=== PATIENT | female | born 1945 | race Caucasian/White ===

== ENCOUNTER → 2018-01-15 | Outpatient (CLI) | payer MEDICARE, OTHER ==
[~2018-01-15] MED LIST: ASPIR 8181 MG PO; CENTRUM SILVER1 EAC4 PO; CREON DR 24,001 EACH PO; FENTANYL PA50 MCG/HR TRANSDERM; HYDROCODONE-APA1 TA1 PO; HYDROXYZINE HCL25 M2 PO; LASIX 40 MG TAB40 M2 PO; LEVOTHYROXIN0.112 M1 PO; LEXAPRO 10 MG T10 M1 PO; LIBRAX PO; LIDODERM 5%1 PATC1 TRANSDERM; LINZESS145 MCG PO; NORVASC10 MG PO; ONDANSETRON HCL4 M2 PO; PROTONIX40 M1 PO; RESTORIL15 MG PO; XANAX 0.25 MG0.25 MG PO
[2018-01-15 16:58] LABS: HEMATOCRIT 39.5 % (37.0-47.0); MCH 28.7 pg (26.0-34.0); MCV 87.2 fL (80.0-100.0); MPV 8.2 fl. (7.2-11.1); RBC 4.52 mil/uL (4.20-5.00); RDW-CV 12.6 % (10.5-14.5); WBC 8.2 thou/uL (4.0-11.0)
[2018-01-15 17:14] LABS: ALBUMIN 3.3 g/dL (3.4-5.0); CREATININE 1.8 mg/dL (0.6-1.3); POTASSIUM 3.9 mmol/L (3.5-5.1); TOTAL BILIRUBIN 0.3 mg/dL (<0.1-1.0); TOTAL PROTEIN 8.1 g/dL (6.4-8.2)
== END ==
LOC: M.LAB 16:39
PROVIDERS: Internal Medicine Gastroenterology
DX: R10.9 Unspecified abdominal pain (principal); R63.4 Abnormal weight loss; R63.0 Anorexia

== ENCOUNTER → 2018-01-22 | Outpatient (CLI) | payer MEDICARE, OTHER | LOC: M.NUC 07:01 | DX: K29.70 Gastritis, unspecified, without bleeding (principal); K31.89 Other diseases of stomach and duodenum ==

== ENCOUNTER → 2018-03-26 | Outpatient (CLI) | payer MEDICARE, OTHER ==
[2018-03-26 17:22] LABS: ALBUMIN 3.3 g/dL (3.4-5.0); CALCIUM 8.9 mg/dL (8.5-10.1); CREATININE 1.3 mg/dL (0.6-1.3); POTASSIUM 4.3 mmol/L (3.5-5.1)
[2018-03-27 18:12] LABS: eGFR IF AFRICAN AMERICAN 60 (>59)
[2018-03-27 22:05] LABS: PARATHYROID HORMONE 45 pg/mL (15-65)
== END ==
LOC: M.RAD 16:00
PROVIDERS: Internal Medicine Gastroenterology
DX: M81.0 Age-related osteoporosis without current pathological fracture (principal); N18.3 Chronic kidney disease, stage 3 (moderate); Z78.0 Asymptomatic menopausal state; Z79.899 Other long term (current) drug therapy

== ENCOUNTER → 2018-06-07 | Outpatient (CLI) | payer MEDICARE, OTHER ==
[2018-06-07 16:44] LABS: ALBUMIN 3.4 g/dL (3.4-5.0); CALCIUM 8.9 mg/dL (8.5-10.1); CREATININE 1.5 mg/dL (0.6-1.3); PHOSPHORUS* 3.4 mg/dL (2.5-4.9); POTASSIUM 3.6 mmol/L (3.5-5.1)
[2018-06-08 02:07] LABS: eGFR IF AFRICAN AMERICAN 45 (>59)
[2018-06-08 05:11] LABS: PARATHYROID HORMONE 42 pg/mL (15-65)
== END ==
LOC: M.LAB 15:59
PROVIDERS: Internal Medicine Nephrology
DX: N18.3 Chronic kidney disease, stage 3 (moderate) (principal); J44.9 Chronic obstructive pulmonary disease, unspecified

== ENCOUNTER → 2019-01-17 | Outpatient (CLI) | payer MEDICARE, OTHER ==
[2019-01-17 16:02] LABS: ALBUMIN 3.8 g/dL (3.4-5.0); CALCIUM 9.1 mg/dL (8.5-10.1); CREATININE 1.4 mg/dL (0.6-1.3); POTASSIUM 3.6 mmol/L (3.5-5.1); TOTAL BILIRUBIN 0.4 mg/dL (<0.1-1.0); TOTAL PROTEIN 8.3 g/dL (6.4-8.2)
[2019-01-17 20:26] LABS: HEMATOCRIT 38.6 % (37.0-47.0); HEMOGLOBIN 12.7 gm/dL (12.0-15.0); MCH 28.7 pg (26.0-34.0); MCHC 32.8 g/dL (28.0-37.0); MCV 87.4 fL (80.0-100.0); MPV 9.3 fl. (7.2-11.1); RBC 4.41 mil/uL (4.20-5.00); RDW-CV 13.2 % (10.5-14.5); WBC 11.1 thou/uL (4.0-11.0)
== END ==
LOC: M.RAD 15:12
PROVIDERS: Registered Nurse
DX: R06.02 Shortness of breath (principal); I10 Essential (primary) hypertension; Z88.8 Allergy status to other drugs, medicaments and biological substances

== ENCOUNTER → 2019-01-30 | Outpatient (CLI) | payer MEDICARE, OTHER ==
--- NOTE | 2019-01-30 12:39 | 2DMMODE ---
[place] [address] 2 D/M-MODE ECHOCARDIOGRAM Name: FILIPE DOWNS Room: [facility]#: [id number] Admission: 01/30/19 Attend Phys: Vidal Montero, Discharge: Date of : 45 Date of Service: 01/30/19 1239 Report #: [id number] THIS REPORT FOR: //name// APPROVED REPORT Study performed: 01/30/2019 11:33:59 EXAM: Comprehensive 2D, Doppler, and color-flow Echocardiogram Patient Location: Out-Patient BSA: 1.69 HR: 61 bpm BP: 137/80 mmHg Other Information Study Quality: Good Indications Congestive Heart Failure 2D Dimensions IVSd: 12.83 (7-11mm) LVOT Diam: 20.84 (18-24mm) LVDd: 43.98 mm PWd: 10.79 (7-11mm) Ascending Ao: 30.31 (22-36mm) LVDs: 34.21 (25-40mm) Aortic Root: 32.90 mm Volumes Left Atrial Volume (Systole) LA ESV Index: 23.30 mL/m2 Aortic Valve AoV Peak Mark.: 1.12 m/s AO Peak Gr.: 5.06 mmHg LVOT Max P.96 mmHg AO Mean Gr.: 2.55 mmHg LVOT Mean P.97 mmHg LVOT Max V: 0.70 m/s AO V2 VTI: 26.29 cm LVOT Mean V: 0.45 m/s CONCEPCIÓN (VTI): 2.27 cm2 LVOT V1 VTI: 17.46 cm Mitral Valve E/A Ratio: 0.58 MV Decel. Time: 290.07 ms MV E Max Mark.: 0.44 m/s MV PHT: 84.12 ms MVA (PHT): 2.62 [place]2 [place] [address] 2 D/M-MODE ECHOCARDIOGRAM Name: FILIPE DOWNS [id number] Admission: 01/30/19 Attend Phys: Vidal Montero, Discharge: Date of : 45 Date of Service: 01/30/19 1239 Report #: [id number] TDI E/Lateral E': 7.33 E/Medial E': 8.80 Medial E' Mark.: 0.05 m/s Lateral E' Mark.: 0.06 m/s Pulmonary Valve PV Peak Mark.: 0.71 m/s PV Peak Gr.: 1.99 mmHg Tricuspid Valve RAP Estimate: 5.00 mmHg TR Peak Gr.: 16.86 mmHg RVSP: 21.86 mmHg PA Pressure: 21.86 mmHg Left Ventricle The left ventricle is normal size. There is normal LV segmental wall motion. There is normal left ventricular wall thickness. Left ventricular systolic function is normal. The left ventricular ejection fraction is within the normal range. LVEF is 55%. Grade I - abnormal relaxation pattern. Right Ventricle The right ventricle is normal size. The right ventricular systolic function is normal. Atria The left atrium size is normal. The right atrium size is normal. Aortic Valve Moderate aortic valve sclerosis. No aortic regurgitation is present. There is no aortic valvular stenosis. Mitral Valve The mitral valve is normal in structure. There is no mitral valve regurgitation noted. No evidence of mitral valve stenosis. Tricuspid Valve The tricuspid valve is normal in structure. Mild tricuspid regurgitation. Pulmonic Valve The pulmonary valve is normal in structure. Mild pulmonic regurgitation[place] [address] 2 D/M-MODE ECHOCARDIOGRAM Name: YARELIWESTONFILIPELIYAH TATE Room: [facility]#: [id number] Admission: 01/30/19 Attend Phys: Vidal Montero, Discharge: Date of : 45 Date of Service: 01/30/19 1239 Report #: [id number] The aortic root is normal in size. IVC is normal in size and collapses >50% with inspiration. Pericardium There is no pericardial effusion. <Conclusion> The left ventricle is normal size. There is normal left ventricular wall thickness. Left ventricular systolic function is normal. The left ventricular ejection fraction is within the normal range. LVEF is 55%. Grade I - abnormal relaxation pattern. The right ventricle is normal size. The left atrium size is normal. Moderate aortic valve sclerosis. No aortic regurgitation is present. There is no aortic valvular stenosis. The mitral valve is normal in structure. The tricuspid valve is normal in structure. Mild tricuspid regurgitation. IVC is normal in size and collapses >50% with inspiration. There is no pericardial effusion. There is normal LV segmental wall motion. <ELECTRONICALLY SIGNED> By: Lane Ricketts MD, FACC 01/30/[address] Rick[address] MD, FACC /INF
--- NOTE | 2019-01-30 16:28 | CARDNUC ---
[place] [address] CARDIAC NUCLEAR IMAGING REPORT Name: YARELIFILIPELIYAH TATE Room: [facility]#: [id number] Admission: 01/30/19 Attend Phys: Vidal Montero, Discharge: Date of : 45 Date of Service: 01/30/19 1628 Report #: [id number] THIS REPORT FOR: //name// APPROVED REPORT Imaging Protocol: Rest Tc-99m/Stress Tc-99m 1 day Study performed: 01/30/2019 09:30:00 Indication: Dyspnea Patient Location: Out-Patient Stress Tech: Kristyn Braun Stress Nurse: Maritza Warren RN NM Tech:ELAINE Suarez Ht: 5 ft 2 in Wt: 148 lbs BSA: 1.68 m2 BMI: 27.06 Medical History Medical History: cad, takosubo, hyperlipidemia, hypertension, diabetes Medications: amlodipine, asa-81, furosemide Allergies: nsaids, statins Cardiac Risk Factors: age, hyperlipidemia, hypertension, diabetes, family hx Previous Cardiac Procedures: none Exercise History: Indeterminate Resting Data Rest SPECT myocardial perfusion imaging was performed in supine position 30 minutes following the intravenous injection of 11.5 mCi of Tc-99m Sestamibi. Time of rest injection: 954 Date: 01/30/2019 The images were gated to evaluate regional wall motion and calculate left ventricular ejection fraction. Administration Route: IV Pharmacologic Stress Pharmacologic stress test was performed by injecting Regadenoson 0.4 mg IV push over 10-15 seconds immediately followed by the intravenous injection of 31.9 mCi of Tc-99m Sestamibi. Time of stress injection: 1130 Date: 01/30/2019 Administration Route: IV Gated Stress SPECT was performed 40 minutes after stress injection. The images were gated to evaluate regional [place] [address] CARDIAC NUCLEAR IMAGING REPORT Name: FILIPE DOWNS Room: [facility] TRISTAN Conte#: [id number] Admission: 01/30/19 Attend Phys: Vidal Montero, Discharge: Date of : 45 Date of Service: 01/30/19 1628 Report #: [id number] left ventricular ejection fraction. Prone imaging was performed. Stress Test Details Stress Test: Pharmacologic stress testing performed using 0.4 mg of regadenoson per 5 mL given IV over 10 seconds. Reason for pharmacologic stress test: physical limitation. 60 mg caffeine given for dizziness. HR Max Heart Rate (APMHR): 147 bpm Resting HR: 55 bpm Target HR (85% APMHR): 124 bpm Max HR Achieved: 80 bpm % of APMHR: 54 Recovery HR: 62 bpm BP Resting BP: 137/80 mmHg Max BP: 155/70 mmHg Recovery BP: 136/69 mmHg ECG Resting ECG: Sinus Rhythm, nonspecific ST-T abnormalities Stress ECG: Sinus Rhythm, LBBB ST Change: None Arrhythmia: None Recovery ECG: Sinus Rhythm, LBBB Recovery ST Change: None Recovery Arrhythmia: None Clinical Reason for Termination: Completed protocol Stress Symptoms: Dyspnea Exercise duration: 0 min sec Exercise capacity: 1 METs The patient had some atypical symptoms with Lexiscan infusion that resolved with caffeine. Nurse Comments caffeine used to reverse pt d/t changes in ekg. qrs widened with pascual and qrs returned to normal after injection on caffeine Stress ECG Conclusion The baseline 12-lead EKG show sinus rhythm with nonspecific ST segment depression and T-wave inversion. With Lexiscan infusion the patient developed left bundle-branch block that persisted throughout the remainder of the stress phase. There were no stress[place] [address] CARDIAC NUCLEAR IMAGING REPORT Name: FILIPE DOWNS Room: [facility]#: [id number] Admission: 01/30/19 Attend Phys: Vidal Montero, Discharge: Date of : 45 Date of Service: 01/30/19 1628 Report #: [id number] arrhythmias. Study Quality Study: Good Artifact: No artifact Study Data At rest, the left ventricular ejection fraction was 62%.. Post stress, the left ventricular ejection was 50%.. TID = 1.20. Perfusion There is a moderate size mild intensity reversible defect in the mid to distal anteroapical anterolateral wall. There is a focal partially reversible apical defect of mild intensity. No other significant abnormalities are noted. Wall Motion There is mild global hypokinesis. There is left ventricular dyssynergy consistent with underlying bundle branch block. Additionally the apex appears somewhat hypokinetic. There is mild global LV systolic dysfunction. Nuclear Conclusion ECG Findings: non-diagnostic Clinical Findings: equivocal Nuclear Findings: positive for ischemia Exercise Capacity: not assessed Left Ventricular Function: abnormal Risk Study: high Myocardial perfusion images suggest ischemia involving the mid to distal anterior wall as well as possibly the apex. There is mild LV systolic dysfunction with wall motion abnormalities as noted above. This is a high risk study. <Conclusion> The baseline 12-lead EKG show sinus rhythm with nonspecific ST segment depression and T-wave inversion. With Lexiscan infusion the patient developed left bundle-branch block that persisted throughout the remainder of the stress phase. There were no stress-induced arrhythmias. <ELECTRONICALLY SIGNED> By: Vidal Montero MD, FACC 01/30/19 1628 1628 1628 Vidal Montero MD, FACC /INF
== END ==
LOC: M.NUC
DX: I08.8 Other rheumatic multiple valve diseases (principal); I25.10 Atherosclerotic heart disease of native coronary artery without angina pectoris; I11.0 Hypertensive heart disease with heart failure; I50.9 Heart failure, unspecified; E11.9 Type 2 diabetes mellitus without complications; E78.2 Mixed hyperlipidemia; M81.0 Age-related osteoporosis without current pathological fracture; M10.9 Gout, unspecified; E03.9 Hypothyroidism, unspecified; Z79.899 Other long term (current) drug therapy; Z88.8 Allergy status to other drugs, medicaments and biological substances; Z82.49 Family history of ischemic heart disease and other diseases of the circulatory system

== ENCOUNTER 2019-02-12 13:49 | Observation (INO) | payer MEDICARE, OTHER ==
[2019-02-12] VITALS (8 sets, daily range): BP systolic 134–161; BP diastolic 61–76
[~2019-02-12] VITALS: Ht 157.5 cm; Wt 71.2 kg
[~2019-02-12 13:49] MED LIST changes: -NORVASC10 MG PO; +NORVASC5 MG PO; +PEPCID40 MG PO; -PROTONIX40 M1 PO
[2019-02-12 14:36] LABS: MCH 28.9 pg (26.0-34.0); MCHC 33.3 g/dL (28.0-37.0); MCV 86.9 fL (80.0-100.0); MPV 8.7 fl. (7.2-11.1); RBC 4.49 mil/uL (4.20-5.00); RDW-CV 12.8 % (10.5-14.5); WBC 9.6 thou/uL (4.0-11.0)
[2019-02-12 14:43] LABS: ANION GAP 9 mmol/L (7-16); BUN 23 mg/dL (7-18); CALCIUM 9.2 mg/dL (8.5-10.1); CHLORIDE 104 mmol/L (98-107); CO2 27 mmol/L (21-32); CREATININE 1.5 mg/dL (0.6-1.3); GLUCOSE 107 mg/dL (70-99); POTASSIUM 3.7 mmol/L (3.5-5.1); SODIUM 140 mmol/L (136-145)
[2019-02-12] MEDS ORDERED: JANUVIA100 MG PO (14:43)
[2019-02-12 14:44] LABS: APTT 26.4 Seconds (25.0-31.3); INR 0.9; PROTIME 9.7 Seconds (9.20-11.50)
[2019-02-12 14:49] LABS: ALBUMIN 3.4 g/dL (3.4-5.0); ALKALINE PHOSPHATASE 142 U/L (46-116); CHOLESTEROL 237 mg/dL (<200); HDL CHOLESTEROL 30 mg/dL (>40); SGOT 30 U/L (15-37); SGPT 30 U/L (30-65); TC:HDL 7.9 Ratio (Not establshd); TOTAL BILIRUBIN 0.2 mg/dL (<0.1-1.0); TOTAL PROTEIN 7.5 g/dL (6.4-8.2); TRIGLYCERIDE 503 mg/dL (<150); VLDL 101 mg/dL (<40)
[2019-02-12 14:53] LABS: LDL CHOLESTEROL ND mg/dL (<100); SERUM ASSESSMENT Moderate Lipemia
--- NOTE | 2019-02-12 16:13 | EKG ---
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
[2019-02-12] MEDS ORDERED: LIBRAX CAPSULE1 EACH PO (17:22)
[2019-02-12] MEDS ORDERED: OXYCODONE HCL10 MG PO (17:25)
--- NOTE | 2019-02-12 17:32 | NUR ---
RECEIEVED REPORT FROM SOPHIA RN IN [employer] [facility] CATH AT 1600- DX: SOA WITH HEART CATH PERFORMED, ACCESS PER RIGHT GROIN- PT REPORTED TO HAVE RECEVIED 2 STENTS TO RCA- PT ARRIVED TO UNIT VIA BED AT 1630- ADVERTISING CLERK PLACED ORDERED, TRACING SR WITH BBB- PT A&O X4- CONTINENT OF BOWEL, LOU IN PLACE D/D - BED REST IN PLACE WITH VS ORDERED PERPROTOCOL WITH FREQUENT GROIN CHECKS- RIGHT GROIN WITH C/D/I DRESSING, NO HEMATOMA NOTED-IMMOBILIZATION OF RLE INSTRUCTED- LCTA, LABORED BREATHING NOTED, O2 SAT STABLE AT 98%- IV NOTED INTACT TO LEFT WRIST, SL-ABD SOFT/ROUND/NON-TENDER, BS X4 QUADS- LAST BM REPORTED 02/11/19- AT SIDE AT TIME OF ADMISSION- CALL LIGHT AND PERSONAL BELONGINGS WITH IN REACH- HOURLY ROUNDS IN PLACE R/T SAFETY/NEEDS- ALL NEEDS MET AT THIS TIME-WCTM
[2019-02-13] VITALS (8 sets, daily range): BP systolic 98–115; BP diastolic 40–59
--- NOTE | 2019-02-13 04:57 | NUR ---
ASSUMED PT CARE AT 1915. PT AAOX4, ANXIOUS, C/O SOA. VSS.PT HAD 2 EPISODES OF VTACH. NONSUSTAINED, ASYMPTOMATIC. RIGHT GROIN SITE CLEAN, DRY, INTACT, NO HEMATOMA. CARDIOLOGY PAGED FOR PT COMPLAINTS/HOME MEDS. RECEIVED CALL BACK FROM DR. HERNANDEZ, NEW ORDERS RECEIVED. HOURLY ROUNDING COMPLETED. CALL LIGHT WITHIN REACH. DENIES CHEST PAIN THIS SHIFT.
[2019-02-13 05:40] LABS: HEMATOCRIT 38.7 % (37.0-47.0); HEMOGLOBIN 13.2 gm/dL (12.0-15.0); MCH 29.6 pg (26.0-34.0); MCHC 34.1 g/dL (28.0-37.0); MCV 86.7 fL (80.0-100.0); MPV 8.9 fl. (7.2-11.1); RBC 4.46 mil/uL (4.20-5.00); RDW-CV 12.9 % (10.5-14.5)
[2019-02-13 05:54] LABS: ALBUMIN 3.3 g/dL (3.4-5.0); CREATININE 1.4 mg/dL (0.6-1.3); POTASSIUM 3.5 mmol/L (3.5-5.1); TOTAL BILIRUBIN 0.5 mg/dL (<0.1-1.0); TOTAL PROTEIN 7.2 g/dL (6.4-8.2)
--- NOTE | 2019-02-13 10:21 | EKG ---
[place] [address] ELECTROCARDIOGRAM REPORT Name: APRIL DOWNSBETH LEA Room: [address] M.R.#: [id number] Admission: 02/12/19 Attend Phys: Vidal Montero MD Discharge: Date of : 45 Report #: [id number] THIS REPORT FOR: //name// [facility] Test Date: 2019-02-12 Test Time: 16:36:21 Pat Name: FILIPE DOWNS Department: Room: [facility] Gender: F Media Librarian: : 1945 Requested By: Vidal Montero Order Number: [id number] Alan MD: Dung Jorge Measurements Intervals [place] Rate: 75 P: 63 MA: 201 QRS: 47 QRSD: 144 T: 217 QT: 500 QTc: 559 Interpretive Statements Sinus rhythm Left bundle branch block Compared to ECG 02/12/2019 14:31:17 No significant changes Electronically Signed On 02-13-2019 10:21:44 CDT by Dung Jorge [email or web address] <ELECTRONICALLY SIGNED> By: Dung Jorge MD, [facility] 02/13/19 1021 1636 1636 Dung Jorge MD, [facility] /EPI
--- NOTE | 2019-02-13 10:28 | EKG ---
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1945 Requested By: Vidal Montero Order Number: [id number] Reading MD: Dung Jorge Measurements Intervals [place] Rate: 52 P: 48 [place]: 203 QRS: 37 QRSD: 104 T: 35 QT: 681 QTc: 634 Interpretive Statements Sinus rhythm Abnormal T, consider ischemia, anterior leads Prolonged QT interval Compared to ECG 02/12/2019 14:31:17 T-wave abnormality now present Prolonged QT interval now present Left bundle-branch block no longer present Electronically Signed On 02-13-2019 10:28:35 CDT by Dung Jorge [email or web address] <ELECTRONICALLY SIGNED> By: Dung Jorge MD, [facility] 02/13/19 [phone] Dung Jorge MD, [facility] /EPI
--- NOTE | 2019-02-13 11:33 | CARD ---
[address] [address] CARDIAC CATH REPORT Name: FILIPE DOWNS LEA Room: [address] Nadine Conte#: [id number] Admission: 02/12/19 Attend Phys: Vidal Montero MD Discharge: Date of : 45 Report #: [id number] THIS REPORT FOR: //name// APPROVED REPORT Study performed: 02/12/2019 14:28:00 Patient Details The patient is a 73 year-old female Event Personnel Vidal Montero Medical Communication Specialist, Shaye Andujar RN [employer] Paralegal, Milton You LUMBER STRAIGHTENED Monitor, Alban Merchant LUMBER STRAIGHTENED Scrub Procedures Performed Left Heart Cath w/or w/o Coronaries [id number] [facility] Place w/wo Plasty Single RCA [id number] Admission/Lab Medications/Medications given during procedure Lidocaine Subcut 15 ml, Fentanyl IV 25 mcg, Midazolam (Versed) IV 2 mg, Angiomax IV 10.5 ml, Angiomax Drip IV 23.8 ml per hr, Hydralazine (Apresoline) IV 10 mg, Nitroglycerin SL 1 mg, Lasix (Furosemide) IV 40 ml per hr, Effient PO 60 mg, Aspirin PO 98 mg Procedure Narrative A 6fr Ultimum Sheath sheath was inserted into the RFA. Coronary angiography was performed using coronary diagnostic catheters. The right coronary system was accessed and visualized with a JR4 catheter. The left coronary system was accessed and visualized with a JL4 catheter. The left ventricle was accessed and visualized with a Straight PIG catheter. The patient tolerated the procedure well and there were no complications associated with the procedure. Intraoperative Conscious Sedation Fentanyl 50 mcg Dose: 1560 mGy Contrast Type and Amount: Visipaque 170 ml Coronary Angiography The patient's coronary anatomy is right dominant. Diagnostic Cath Left Main Minimally plaqued and calcified. The left [place] [address] CARDIAC CATH REPORT Name: FILIPE DOWNS Room: [address] M.R.#: [id number] Admission: 02/12/19 Attend Phys: Vidal Montero MD Discharge: Date of : 45 Report #: [id number] into an LAD, ramus intermedius and circumflex marginal branch. LAD Calcified proximally. Mildly plaqued 10-20% proximal mid and distal portion. No hemodynamically significant occlusive stenoses noted. Diagonal 1 Minimally plaqued, small in caliber. Diagonal 2 Minimally plaqued, small in caliber. Circumflex Calcified proximally. Minimal nonocclusive stenoses in the proximal and midportion. Distally there is a tubular 60% narrowing. OM1 Small in caliber and minimally plaqued. OM2 Small in caliber and minimally plaqued. OM3 Moderate in caliber. Mildly plaqued. Right Coronary 80% long tubular narrowing in the proximal to mid right coronary artery. Focal 70 and 60% narrowing in the mid to distal right coronary artery. R PDA Mildly plaqued. RPLV Small in caliber and minimally plaqued. Ramus Large vessel with obtuse marginal distribution. Mild to moderate plaquing without hemodynamically significant stenoses. Left Ventriculography Left Ventriculography was not performed. Hemodynamics The aortic pressure is 171/67 mmHg with a mean of 102 mmHg. The left ventricular pressure is 169/10 mmHg with a mean of mmHg. The left ventricular end diastolic pressure is 20 mmHg. PCI Technique Lesion Anticoagulation was achieved with Angiomax. Patient was preloaded with Angiomax IV 10.5 ml. Percutaneous coronary intervention was performed on the proximalmid right coronary artery. The lesion stenosis prior to intervention was 80% with MATHEW 3 flow. A 6F IM 100CM Guide Catheter was used to engage the ostium. A IG: BMW 190cm Interventional Guidewire was used to cross the lesion. BALLOON DILATION A Balloon catheter Trek RX 2.5 X 12 was inserted and inflated up to 12.00atm for 46seconds. Additional Inflation: 15.00atm for 13seconds. STENT DEPLOYMENT A drug-eluting stent Xience Ashley 2.15Y61jr was inserted and inflated up to 15.00atm [place] 10seconds. [place] [address] CARDIAC CATH REPORT Name: FILIPE DOWNS LEA Room: [address] Nadine Conte#: [id number] Admission: 02/12/19 Attend Phys: Vidal Montero MD Discharge: Date of : 45 Report #: [id number] Final angiography reveals 0 % stenosis with MATHEW 3 flow. STENT DEPLOYMENT A stent Xience Ashley 2.5X8mm was inserted and inflated up to 14.00atm for 8seconds. PCI Technique Lesion 2 Percutaneous Coronary Intervention was performed on the right coronary artery. The lesion stenosis prior to intervention was 75% with MATHEW 3 flow. Stent Deployment A drug-eluting stent Xience Ashley 2.5X8mm was inserted and inflated up to 15atm for 15seconds. Final angiography reveals 0 % stenosis with MATHEW 3 flow. Conclusion 1. 70-80% plaquing in the proximal to mid right coronary artery followed by short segment of aneurysmal dilatation and 75% narrowing at the acute margin 2. 60% narrowing in the distal circumflex coronary artery. 3. Otherwise aejv-jl-uylauigs plaquing without hemodynamic significance. 4. LV gram not performed. 4. Mildly elevated left ventricular end-diastolic pressure. 5. Successful percutaneous coronary intervention with deployment of sequential drug-eluting stents at the sites of tubular 80% proximalmid and focal 75% mid right narrowing stenosis with 0% residual narrowing at both sites following stent deployment and MATHEW-3 flow to the distal vessel Recommendations Cardiac Risk Reduction Program Aggressive Medical Therapy 1. Consider percutaneous coronary intervention to the proximal to mid right coronary artery. 2. Continue aggressive risk factor modification. [place] [address] CARDIAC CATH REPORT Name: FILIPE DOWNS Room: [address] Nadine Conte#: [id number] Admission: 02/12/19 Attend Phys: Vidal Montero MD Discharge: Date of : 45 Report #: [id number] Aspirin (any) Ticagrelor <ELECTRONICALLY SIGNED> By: Lane Ricketts MD, FACC 02/13/19 1132 [address] Ricketts MD, FAC /INF
--- NOTE | 2019-02-13 11:38 | NUR ---
RECEVIED REPORT FROM RADHA AND ASSUMED CARE OF PT @ 7963.PT IS A/O X4,BP SLIGHTLY LOW AT 100/53- MORNING AMILODIPINE HELD.TRACING SB ON THE MONITOR @ 55BPM.DASHA SECURE AND PATENT.CATH SITE CLEAN, DRY, AND INTACT.PT IS CALM AND COOPERATIVE WITH NO C/O PAIN.PT UP AD JAIME IN ROOM.CALL LIGHT WITHIN REACH.WILL CONTINUE TO MONITOR.
[2019-02-13] MEDS ORDERED: EFFIENT10 MG PO (14:23)
--- NOTE | 2019-02-13 14:33 | NUR ---
PT OK FOR DISCHARGE.DISCHARGE PAPERWORK COMPLETED AND GIVEN TO PT.SCRIPTS GIVEN WITH EDUCATION.IV REMOVED.HEART MONITOR REMOVED AND RETURNED TO THE NURSING STATION.LOU REMOVED-PT REFUSED TO STAY UNTIL SHE URINATES.ALL PERSONAL BELONGINGS PACKED AND TAKEN WITH PT.CARDIOLOGY FOLLOW UP SCHEDULED.PT WHEELED OUT BY NURSING STAFF TO PERSONAL VEHICLE.
--- NOTE | 2019-02-13 17:16 | NUR ---
PT WAS TO DISCHARGE BUT HAD POSITIVE ORTHOSTATIC HYPOTENSION.PT IS TO STAY AND RECEIVED 250 FLUID BOLUS.AMILODIPINE D/C.CARDIAC MONITORING IN PLACE WITH NO CHANGES.IV PATENT AND SALINE LOCKED.PAIN MANAGED WELL WITH PO MEDICATIONS.PT INFORMED OF PLAN OF CARE AND COMMUNICATES UNDERSTANDING.HOURLY ROUNDING COMPELTED FOR PT SAFETY.CALL LIGHT AND FALL PRECAUTIONS IN PLACE.WILL CONTINUE TO MONITOR FOR DURATION OF SHIFT.
[2019-02-14] VITALS: BP 127/52
[2019-02-14 04:00] VITALS: BP 141/59
--- NOTE | 2019-02-14 06:54 | NUR ---
PT SLEPT ON AND OFF THIS SHIFT. ASSESSMENT DOCUMENTED. MEDS GIVEN PER E-NOV. IV PATENT. PAIN, NAUSEA, AND ANXIETY MEDS GIVEN PE E-NOV. PT UP SBA THIS SHIFT. WILL CONTINUE WITH PLAN OF CARE.
[2019-02-14 08:00] VITALS: BP 117/53
[2019-02-14 08:01] VITALS: BP 89/45
[2019-02-14 08:02] VITALS: BP 78/47
[2019-02-14 10:18] VITALS: BP 100/53
--- NOTE | 2019-02-14 10:38 | NUR ---
ASSUMED PT CARE REPORT RECEIVED FROM NURSE PT IS AOX4 SR ON MANAGER AGRICULTURAL . ON RA. O2 SATURATION IS 95% ON RA. ORTHOSTATIC BP CHECKED. SEE EMAR. NO BP MED GIVEN THIS AM. DISCHARGE ORDERED PT LEFT FLOOR AT 1037. DISCHARGE INSTRUCTION GIVEN TO PT. NO FURTHER QUESTIONS ASKED.EFFIENT PRESCRIPTION GIVEN.
== END 2019-02-14 10:43 | disposition home or self-care (01) ==
LOC: M.CL 13:49 → M.TBA-ER 15:55 → M.2W 15:55
PROVIDERS: ADMIT Internal Medicine Cardiovascular Disease
DX: I25.10 Atherosclerotic heart disease of native coronary artery without angina pectoris (principal); E78.5 Hyperlipidemia, unspecified; I12.9 Hypertensive chronic kidney disease with stage 1 through stage 4 chronic kidney disease, or unspecified chronic kidney disease; E11.22 Type 2 diabetes mellitus with diabetic chronic kidney disease; N18.9 Chronic kidney disease, unspecified; I95.1 Orthostatic hypotension; I42.9 Cardiomyopathy, unspecified; Z79.899 Other long term (current) drug therapy; Z88.8 Allergy status to other drugs, medicaments and biological substances

== ENCOUNTER → 2019-03-29 | Outpatient (CLI) | payer MEDICARE, OTHER ==
[~2019-03-29] MED LIST changes: +EFFIENT10 MG PO; +JANUVIA100 MG PO; +LIBRAX CAPSULE1 EACH PO; +OXYCODONE HCL10 MG PO
--- NOTE | 2019-04-02 08:27 | PF ---
[place] [address] PULMONARY FUNCTION REPORT Name: FILIPE DOWNS LEA Room: [facility].Winif[facility]#: [id number] Admission: 03/29/19 Attend Phys: Le Lazar RN Discharge: Date of : 45 Report #: [id number] THIS REPORT FOR: //name// CC: Karmen Wong DATE OF SERVICE: 03/29/2019 ATTENDING PHYSICIAN: Karmen Cristobal DO INDICATIONS: A 73-year-old female with mild dyspnea. FINDINGS: Full PFTs show mild obstructive defect on spirometry. FEV1 is 2.05, FVC is 2.75, ratio is 75%. Mild decrease in mid flow rates noted. No significant response after inhaled bronchodilator. The patient appeared dyspneic doing lung volumes and the predicted lung volumes were twice the measured lung volumes, which I believe is a lab error or patient error. Diffusion was within normal limits. IMPRESSION: Abnormalities suggest mild obstructive airways disease without any significant bronchodilator response. Lung volumes are not reproducible. <ELECTRONICALLY SIGNED> By: Gerber Blakely MD 04/02/19 0827 1223 2230Gerber Blakely MD /nt
== END ==
LOC: M.PUL 13:00
DX: R06.02 Shortness of breath (principal); R06.00 Dyspnea, unspecified; Z88.8 Allergy status to other drugs, medicaments and biological substances

== ENCOUNTER → 2019-04-19 | Outpatient (CLI) | payer MEDICARE, OTHER | LOC: M.RAD 12:00 → M.NUC 13:00 | DX: R07.9 Chest pain, unspecified (principal); R06.02 Shortness of breath; R06.09 Other forms of dyspnea ==

== ENCOUNTER → 2019-05-16 | Outpatient (CLI) | payer MEDICARE, OTHER ==
[2019-05-16 12:29] LABS: CREATININE 1.9 mg/dL (0.6-1.3)
== END ==
LOC: M.LAB 11:57 → M.CT 13:00
PROVIDERS: Internal Medicine Pulmonary Disease
DX: J43.9 Emphysema, unspecified (principal); I25.10 Atherosclerotic heart disease of native coronary artery without angina pectoris; M48.54XA Collapsed vertebra, not elsewhere classified, thoracic region, initial encounter for fracture; K21.9 Gastro-esophageal reflux disease without esophagitis